=== PATIENT | male | born 1945 | race Caucasian/White ===

== ENCOUNTER 2018-04-04 17:02 | Emergency (ER) | payer OTHER, MEDICARE ==
[2018-04-04] MEDS ORDERED: Lidocaine 2% Jelly 5 ML TUBE ONE ×2 (18:01→18:05)
== END 2018-04-04 19:45 | disposition home or self-care (01) ==
LOC: MADERS 17:02
DX: R33.9 Retention of urine, unspecified (principal); Z46.6 Encounter for fitting and adjustment of urinary device
CPT/HCPCS: 51703

== ENCOUNTER 2018-09-24 19:25 | Emergency (ER) | payer MEDICARE ==
[2018-09-24] MEDS ORDERED: Ondansetron PF 4 MG/2 ML Vial ONE (20:18)
[2018-09-24 20:30] LABS: Anisocytosis SLIGHT = 6-15 cells (100X) (0-5/hpf); Eosinophils 1 % (0-10); Hemoglobin 5.9 g/dL (14.0-18.0); Hypochromia MODERATE=16-30 cells (100X) (0-5/hpf); Lymphocytes 2 % (21-51); MDiff Complete? YES; Mean Corpuscular HGB CONC 32.6 g/dL (32.0-36.0); Mean Corpuscular Hemoglobin 30.9 pg (27.0-31.0); Mean Corpuscular Volume 94.8 fL (78.0-98.0); Mean Platelet Volume 8.2 fL (7.4-10.4); Monocytes 7 % (0-10); Neutrophil 89 % (42-75); PLT Morphology Comment Appears Adequate; Platelet Count 442 thou/uL (130-400); Poikilocytosis SLIGHT = 6-15 cells (100X) (0-5/hpf); RBC Distribution Width 15.4 % (11.5-14.5); Reactive Lymphocytes 1 % (0-10); White Blood Cell (WBC) Count 31.5 thou/uL (4.8-10.8)
[2018-09-24 20:34] LABS: ALT (SGPT) 22 U/L (8-55); AST (SGOT) 26 U/L (5-34); Albumin 2.3 g/dL (3.4-4.8); Alkaline Phosphatase 298 U/L (40-150); Anion Gap 16 mmol/L (10-20); BUN (Urea Nitrogen) 24 mg/dL (8.4-25.7); Bilirubin, Total 0.8 mg/dL (0.2-1.2); Calc. Creatinine Clearance 0 mL/min (70-130); Calcium 7.7 mg/dL (7.8-10.44); Carbon Dioxide 21 mmol/L (23-31); Chloride 101 mmol/L (98-107); Estimated GFR-MDRD 58; Globulin 2.7 g/dL (2.4-3.5); Glucose 304 mg/dL (83-110); Potassium 4.4 mmol/L (3.5-5.1); Sodium 134 mmol/L (136-145)
[2018-09-24] MEDS ORDERED: Sodium Chloride 0.9% 1,000 ML BAG ONE (20:35)
[2018-09-24] MEDS ORDERED: Insulin Regular 300 UNITS/3 ML VIAL ONE (20:49)
[2018-09-24 21:04] LABS: Lipase Less than 4 U/L (8-78)
== END 2018-09-24 23:45 | disposition short-term general hospital (02) ==
LOC: MADERS 19:25
DX: E86.0 Dehydration (principal); D64.9 Anemia, unspecified; Z79.899 Other long term (current) drug therapy
CPT/HCPCS: 36415; 80053; 83605; 83690; 85025; 96361; 96374; 96375; J1815; J2405; J7050